=== PATIENT | male | born 1945 | race Two or more races ===

== ENCOUNTER 2020-03-18 09:06 | Emergency (ER) | payer OTHER ==
[~2020-03-18] VITALS: Ht 170.2 cm; Wt 83.9 kg
[2020-03-18] MEDS ORDERED: TRILIPIX135 MG (09:32)
[2020-03-18] MEDS ORDERED: PRAVASTATIN SOD80 MG (09:33)
[2020-03-18] MEDS ORDERED: SYNTHROID125 MCG (09:34)
[2020-03-18] MEDS ORDERED: ZESTRIL10 M1 (09:34)
[2020-03-18] MEDS ORDERED: INTESTINEX680 M1 PO (15:23)
[2020-03-18] MEDS ORDERED: PEPCID AC20 MG PO (15:23)
== END 2020-03-18 15:57 | disposition home or self-care (01) ==
LOC: ER 09:06
DX: B34.9 Viral infection, unspecified (principal); K29.60 Other gastritis without bleeding; R53.81 Other malaise

== ENCOUNTER → 2024-02-24 | Emergency (ER) | payer OTHER ==
[~2024-02-24] VITALS: Ht 180.3 cm; Wt 72.6 kg
[~2024-02-24] MED LIST: AMLODIPINE-OLM1 EAC2; AZITHROMYCIN500 MG PO; CEFTRIAXONE SODIUM 1,000 MG VIAL IM STA; CEFTRIAXONE SODIUM 1,000 MG VIAL ONE; INTESTINEX680 M1 PO; PEPCID AC20 MG PO; PRAVASTATIN SOD80 MG; SYNTHROID125 MCG; TRILIPIX135 MG; ZESTRIL10 M1; ZETIA10 MG; ZYLOPRIM100 M1
[2024-02-24 10:45] LABS: HEMATOCRIT 39.3 % (39.0-48.0); MEAN CELL VOLUME 89.1 fL (80.0-100.00); MEAN CORPUSCULAR HEMOGLOBIN 29.6 pg (27.00-32.0); MEAN CORPUSCULAR HGB CONC 33.2 g/dl (32.0-36.0); PLATELET COUNT 256 K/uL (150-450); RED BLOOD COUNT 4.41 M/uL (4.00-6.00); RED CELL DISTRIBUTION WIDTH 14.6 % (11.5-14.5)
== END | disposition home or self-care (01) ==
LOC: ER 08:01
PROVIDERS: Emergency Medicine
DX: J42 Unspecified chronic bronchitis (principal); R05.9 Cough, unspecified; Z20.822 Contact with and (suspected) exposure to COVID-19; I10 Essential (primary) hypertension; E03.8 Other specified hypothyroidism; E11.9 Type 2 diabetes mellitus without complications; Z88.6 Allergy status to analgesic agent
CPT/HCPCS: 36415; 71046; 96372; 99283; J0696

== ENCOUNTER 2024-10-18 08:43 | Emergency (ER) | payer OTHER ==
[~2024-10-18] VITALS: Ht 172.7 cm; Wt 74.8 kg
[~2024-10-18 08:43] MED LIST changes: -CEFTRIAXONE SODIUM 1,000 MG VIAL IM STA; -CEFTRIAXONE SODIUM 1,000 MG VIAL ONE
[2024-10-18 09:57] LABS: HEMATOCRIT 36.2 % (39.0-48.0); HEMOGLOBIN 12.2 g/dL (13-16.00); MEAN CELL VOLUME 89.6 fL (80.0-100.00); MEAN CORPUSCULAR HEMOGLOBIN 30.3 pg (27.00-32.0); MEAN CORPUSCULAR HGB CONC 33.8 g/dl (32.0-36.0); PLATELET COUNT 193 K/uL (150-450); RED BLOOD COUNT 4.04 M/uL (4.00-6.00); RED CELL DISTRIBUTION WIDTH 13.9 % (11.5-14.5)
== END 2024-10-18 11:55 | disposition home or self-care (01) ==
LOC: ER 08:43
PROVIDERS: General Practice
DX: J10.1 Influenza due to other identified influenza virus with other respiratory manifestations (principal); I10 Essential (primary) hypertension; Z88.6 Allergy status to analgesic agent; Z20.822 Contact with and (suspected) exposure to COVID-19